=== PATIENT | male | born 1945 | race Caucasian/White ===

== ENCOUNTER 2023-01-31 17:18 | Emergency (ER) | payer MEDICARE ==
[~2023-01-31] VITALS: Ht 162.6 cm; Wt 72.6 kg
[2023-01-31 17:37] VITALS: BP 146/75; PULSE 67; RESP 18; TEMP 97.8; O2SAT 94
[2023-01-31] MEDS ORDERED: ACETAMINOPHEN 325 MG TAB PO ONE (18:20)
[2023-01-31] MEDS ORDERED: LID5T TP (21:31)
[2023-01-31] MEDS ORDERED: NAPR-54 PO (21:31)
[2023-01-31 21:46] VITALS: BP 135/70; PULSE 70; RESP 13; TEMP 98; O2SAT 95
== END 2023-01-31 21:46 | disposition home or self-care (01) ==
LOC: MED 17:18
DX: S20.212A Contusion of left front wall of thorax, initial encounter (principal); W01.198A Fall on same level from slipping, tripping and stumbling with subsequent striking against other object, initial encounter; Y93.89 Activity, other specified; Y92.89 Other specified places as the place of occurrence of the external cause; Y99.8 Other external cause status
CPT/HCPCS: 71101; 99283

== ENCOUNTER 2023-05-04 18:29 | Emergency (ER) | payer MEDICARE ==
[~2023-05-04] VITALS: Ht 160 cm; Wt 77.8 kg
[~2023-05-04 18:29] MED LIST: LID5T TP; NAPR-54 PO
[2023-05-04 18:43] VITALS: BP 197/79; PULSE 79; RESP 18; TEMP 98.4; O2SAT 97
[2023-05-04] MEDS ORDERED: [UNRECOGNIZED DRUG - CODE] PO (20:20)
== END 2023-05-04 20:23 | disposition home or self-care (01) ==
LOC: MED 18:29
DX: R51.9 Headache, unspecified (principal); J34.89 Other specified disorders of nose and nasal sinuses; M25.561 Pain in right knee; M25.562 Pain in left knee; I10 Essential (primary) hypertension; E11.9 Type 2 diabetes mellitus without complications; E78.5 Hyperlipidemia, unspecified; Z79.899 Other long term (current) drug therapy; Z88.0 Allergy status to penicillin; W18.39XA Other fall on same level, initial encounter; Y92.89 Other specified places as the place of occurrence of the external cause; Y93.89 Activity, other specified; Y99.8 Other external cause status
CPT/HCPCS: 70450; 70486; 72125; 90471; 90715; 99285